=== PATIENT | female | born 1995 | race Asian ===

== ENCOUNTER 2022-05-31 13:38 | Emergency (ER) | payer OTHER ==
[2022-05-31] MEDS ORDERED: ASPIRIN 325 MG TABLET PO STA (14:25)
--- NOTE | 2022-05-31 14:29 | ED Physician Documentation ---
History of Present Illness - Stated complaint Stated Complaint: BACK PAIN - Chief complaint Chief Complaint: Neuro - Additonal information Additional information: 27-year-old female presents emergency department for evaluation of headache, n amy pain as well as intermittent dizziness and diplopia. 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 Patient moved to [facility] about 3 months ago. She did have a CT and MRI completed at an outlying hospital 3 days ago. The report which the patient's have emailed to me shows that the left vertebral artery is nearly occluded at its origin with poor flow within the left V4 segment. Based on these imaging results the patient was referred urgently to [facility] neurology but has been unable to contact them. Today she has reported a worsening headache though this feels different than her typical migraines. She has pain in her posterior neck that radiates to both arms. There is no weakness. No fevers. Patient last had vertigo about a week ago. She describes a sensation of the room spinning as well as double vision that lasts about 15 minutes. She has not had an episode since. No focal deficits, slurred speech or facial droop. Meds: 81 mg aspirin daily, topiramate Review of Systems Constitutional: denies: Fever, Chills Eyes: reports: Other (Diplopia) Nose: reports: Rhinorrhea / runny nose Throat: reports: Reviewed and negative Cardiac: reports: Reviewed and negative Respiratory: reports: Reviewed and negative : reports: Reviewed and negative Skin: reports: Reviewed and negative Musculoskeletal: reports: Neck pain Neurologic: reports: Headache. denies: Generalized weakness, Focal weakness, Numbness PD PAST MEDICAL HISTORY - Past Medical History Past Medical History: Yes Cardiovascular: None Respiratory: None Neuro: CVA, Migraines Endocrine/Autoimmune: None GI: None PIPE SMOKING MACHINE OPERATOR: None : None Psych: None Musculoskeletal: None Derm: None - Past Surgical History Past Surgical History: No - Present Medications Home Medications: Ambulatory Orders Medication Instructions Recorded Confirmed Aspirin EC [Ecotrin] 81 mg PO DAILY 05/31/22 05/31/22 Topiramate [Topamax] 25 mg PO BID 05/31/22 05/31/22 - Allergies Allergies/Adverse Reactions: Allergies Allergy/AdvReac Type Severity Reaction Status Date / Time No Known Drug Allergies Allergy Verified 05/31/22 14:03 - Social History Does the pt smoke?: No Smoking Status: Never smoker Does the pt drink ETOH?: No Does the pt have substance abuse?: No - Immunizations Immunizations are current?: Yes - POLST Patient has POLST: No PD ED PE NORMAL - General General: Alert and oriented X 3, No acute distress, Well developed/nourished - HEENT HEENT: Atraumatic, PERRL, EOMI, Moist mucous membranes, Pharynx benign - Neck Neck: Supple, no meningeal sign, No adenopathy - Cardiac Cardiac: RRR, No murmur - Respiratory Respiratory: No respiratory distress, Clear bilaterally - Abdomen Abdomen: Normal bowel sounds, Soft, Non tender - Derm Derm: Normal color, Warm and dry, No rash - Neuro Neuro: Alert and oriented X 3, electrical troubleshooter 2-12 intact, No motor deficit, No sensory deficit, Normal speech, Other (EOMI. Normal finger-nose. Normal gait normal tandem gait, normal heel avilez. Normal rapid alternating movements) Eye Opening: Spontaneous Motor: Obeys Commands Verbal: Oriented GCS Score: 15 - Psych Psych: Normal mood Results - Vitals Vitals: Vital Signs - 24 hr 05/31/22 05/31/22 05/31/22 13:56 14:32 15:29 Temperature 36.2 C L Heart Rate 66 78 77 Respiratory 16 17 17 Rate Blood Pressure 130/73 151/70 H 104/56 L O2 Saturation 100 100 100 05/31/22 05/31/22 05/31/22 15:30 16:30 17:00 Temperature Heart Rate 71 65 65 Respiratory 18 18 18 Rate Blood Pressure 109/63 134/116 H 107/60 O2 Saturation 100 100 100 05/31/22 05/31/22 05/31/22 17:30 18:00 18:30 Temperature Heart Rate 63 65 70 Respiratory 16 16 16 Rate Blood Pressure 110/60 106/61 106/62 O2 Saturation 100 100 99 05/31/22 05/31/22 05/31/22 19:00 19:30 20:00 Temperature Heart Rate 63 63 74 Respiratory 16 16 21 Rate Blood Pressure 107/67 136/71 H 106/72 O2 Saturation 99 100 100 05/31/22 20:40 Temperature 36.8 C Heart Rate 66 Respiratory 16 Rate Blood Pressure 105/71 O2 Saturation 105 H Oxygen O2 Source Room air - Labs Labs: Laboratory Tests 05/31/22 05/31/22 05/31/22 14:18 14:18 14:18 WBC 6.3 RBC 4.58 Hgb 13.0 Hct 40.1 MCV 87.6 MCH 28.4 MCHC 32.4 RDW 13.0 Plt Count 280 MPV 10.7 Neut # (Auto) 2.9 Lymph # (Auto) 2.5 Miller # (Auto) 0.6 Eos # (Auto) 0.2 Baso # (Auto) 0.1 Absolute Nucleated RBC 0.00 Nucleated RBC % 0.0 PT 12.7 H INR 1.1 Sodium 139 Potassium 3.3 L Chloride 107 Carbon Dioxide 23 Anion Gap 9.0 BUN 14 Creatinine 0.7 Estimated GFR (MDRD) 99 Glucose 83 Calcium 9.5 Total Bilirubin 0.7 AST 17 ALT 12 Alkaline Phosphatase 53 Total Protein 7.4 Albumin 4.5 Globulin 2.9 Albumin/Globulin Ratio 1.6 Lipase 37 Serum HCG, Qual 05/31/22 14:18 WBC RBC Hgb Hct MCV MCH MCHC RDW Plt Count MPV Neut # (Auto) Lymph # (Auto) Miller # (Auto) Eos # (Auto) Baso # (Auto) Absolute Nucleated RBC Nucleated RBC % PT INR Sodium Potassium Chloride Carbon Dioxide Anion Gap BUN Creatinine Estimated GFR (MDRD) Glucose Calcium Total Bilirubin AST ALT Alkaline Phosphatase Total Protein Albumin Globulin Albumin/Globulin Ratio Lipase Serum HCG, Qual NEGATIVE - Rads (name of study) CTA neck Radiology: Final report received (Dominant right vertebral artery with a minuscule left vertebral artery along its entire course which becomes atretic at the V4 segment. No acute dissection identified. No acute change compared to the CT 05/28/2022) CTA head Radiology: Final report received (Dominant right vertebral artery as discussed in the CT angio of the neck. Otherwise normal CTA of the head) PD MEDICAL DECISION MAKING - ED course Complexity details: reviewed results, re-evaluated patient, considered differential, d/w patient, d/w family ED course: 27-year-old female presents to the emergency department for evaluation of headache and neck pain that began today. She does have a history of migraines but states this headache is different. She also reportedly had a vertebral artery dissection in November 2021 in [place]. In addition she was diagnosed as having an ischemic stroke of the left cerebellar vermis. Subsequently in follow-up and repeat CT imaging [address] report reads that the left vertebral artery is occluded. In addition the MRI completed 3 days ago shows that the patient likely has a Chiari malformation. There was no discussion of a cerebellar infarction. Patient was able to email me the PDF results of these images as well as the discharge summary from the hospital. On presentation today she is alert and well-appearing. No focal neuro or cerebellar deficits. In fact her exam is entirely normal. With an unclear history of possible vertebral artery dissection versus occlusion I did perform CT angio of the head and neck. Please see the dictated results. However in discussion with the radiologist he feels that the patient has a highly dominant right vertebral artery and a very small left vertebral artery. This may be her normal variant. He is not convinced that there is vertebral artery occlusion. With the unclear history I did consult with [facility] neurologist Dr. Duran we discussed the case at length. He he was able to review our imaging. He agrees that the patient does not need any further emergent imaging or transfer. He is suspicious that the Chiari malformation may actually be the cause of her headaches. He is unclear why the MRI on the did not show findings of a cerebellar infarct though the documentation from the [facility] does indicate this. At this stage the patient is stable for discharge home. Despite no treatment here in the emergency department she is now free of headache and neck pain. She will continue to obtain follow-up for her headaches and dizziness through [facility] neurology. A referral is pending. She is advised to continue the daily aspirin. She is advised to begin a headache diary as well as a symptom diary for any vertigo or diplopia. Departure - Departure Disposition: 01 Home, Self Care Clinical Impression: History of stroke Headache Qualifiers: Headache type: unspecified Headache chronicity pattern: unspecified pattern Intractability: not intractable Qualified Code(s): R51.9 - Headache, unspecified Comments: Alfonso, You came to the ER today because you had a headache and neck pain. These have resolved without any treatment. However you discussed with us that in November you were treated at a hospital in [place] for a vertebral artery dissection. The reports from the hospital indicate that you may have had a small Cerebellar stroke at that time. However you were advised to follow-up and have repeat CT and MRI imaging. The CT scan completed on 28 May as well as the one completed today show a very small left vertebral artery in comparison to the right sided vertebral artery which is much larger. The radiologist today does not feel that you have an occlusion of the artery. It may simply be too small to see good blood flow through. The MRI completed on the suggests a condition called Chiari malformation. This is where a portion of the brain called the cerebellar tonsilsCan extend down into a portion of the spinal column. For most people this is an asymptomatic and incidental finding. It is not clear if you do have a Chiari malformation however if you do it is not likely to cause you significant problems. It is important that you discuss this possibility with the neurologist. Please continue to follow-up with neurology referral. You may continue your daily aspirin. Continue to avoid any hormones or estrogens. Please begin keeping a headache journal. Document when you get the headaches, the time of the day, any recent foods, and any other associated symptoms such as dizziness or double vision. If at any point you develop sudden slurred speech, have an unsteady gait uncontrolled nausea vomiting or weakness in your arms or legs and please return immediately to the ER for second evaluation Discharge Date/Time: 05/31/22 20:44
[2022-05-31 14:33] LABS: BASOPHILS # (AUTO) 0.1 10^3/uL (0.0-0.1); EOSINOPHILS # (AUTO) 0.2 10^3/uL (0.0-0.7); EOSINOPHILS % (AUTO) 2.6 %; HCT - HEMATOCRIT 40.1 % (37.0-47.0); LYMPHOCYTES # (AUTO) 2.5 10^3/uL (1.5-3.5); LYMPHOCYTES % (AUTO) 40.5 %; MEAN CORPUSCULAR HEMOGLOBIN 28.4 pg (27.0-31.0); MEAN CORPUSCULAR HGB CONC 32.4 g/dL (32.0-36.0); MEAN CORPUSCULAR VOLUME 87.6 fL (81.0-99.0); MEAN PLATELET VOLUME 10.7 fL (7.9-10.8); MONOCYTES # (AUTO) 0.6 10^3/uL (0.0-1.0); MONOCYTES % (AUTO) 9.3 %; NEUTROPHILS # (AUTO) 2.9 10^3/uL (1.5-6.6); NEUTROPHILS % (AUTO) 46.4 %; PLT - PLATELET COUNT 280 10^3/uL (130-450); RED BLOOD COUNT 4.58 10^6/uL (4.20-5.40); WHITE BLOOD COUNT 6.3 x10^3/uL (4.8-10.8)
[2022-05-31 14:52] LABS: INR 1.1 (0.8-1.2); PT - PROTHROMBIN TIME 12.7 secs (9.9-12.6)
[2022-05-31 14:55] LABS: ALBUMIN 4.5 g/dL (3.2-5.5); ALBUMIN/GLOBULIN RATIO 1.6 (1.0-2.2); BILIRUBIN,TOTAL 0.7 mg/dL (0.2-1.0); CALCIUM 9.5 mg/dL (8.5-10.3); CREATININE 0.7 mg/dL (0.4-1.0); POTASSIUM 3.3 mmol/L (3.5-5.0); TOTAL PROTEIN 7.4 g/dL (6.7-8.2)
[2022-05-31 16:02] LABS: HCG,QUALITATIVE BLOOD NEGATIVE
--- NOTE | 2022-05-31 16:44 | CT Report ---
PROCEDURE: ANGIO HEAD W/WO INDICATIONS: History of arterial occlusion and dissection CONTRAST: IV CONTRAST: Optiray 320 ml: 80 PO CONTRAST: *NO PO CONTRAST TECHNIQUE: Precontrast 4.5 mm thick angled axial sections acquired from the foramen magnum to the vertex. Afte r the administration of intravenous contrast, 1 mm thick sections acquired through the [place] is. Postcontrast 4.5 mm thick sections then re-acquired from the foramen magnum to the vertex. 3-di mensional wunkhgh-obeoxixrk-reolvnwfzb (MIP) and/or volume rendering reformats were acquired of the c entral intracranial vasculature. For radiation dose reduction, the following was used: automated ex posure control, adjustment of mA and/or kV according to patient size. COMPARISON: CT angiogram dated 05/28/2022. FINDINGS: Image quality: Excellent. Anterior circulation: Intracranial internal carotid arteries are normal in size and flow. The flow within the paired anterior cerebral arteries is normal and symmetric. The flow within the middle cer ebral arteries is normal and symmetric. The anterior communicating artery is seen. No aneurysms are seen. Posterior circulation: The right vertebral artery is dominant. The left vertebral artery is miniscul e along its entire course and does not reach the basilar artery. The basilar artery is patent. Flow w ithin the posterior cerebral arteries is normal and symmetric. No aneurysms are seen. CSF spaces: Ventricles are normal in size and shape. Basal cisterns are patent. No extra-axial flu id collections. Brain: No midline shift. No intracranial bleeds or masses. Graff-white matter interface appears int act. Skull and face: Calvarium and facial bones appear intact, without suspicious lesions. Sinuses: Visualized sinuses and mastoids are clear. IMPRESSION: 1. Dominant right vertebral artery with a miniscule left vertebral artery along its entire course whi ch becomes atretic in the V4 segment. No acute dissection is identified. There is no interval change compared to the prior CT performed on 05/28/2022 at [facility]. 2. Otherwise normal CTA of the head. Reviewed by: Carlos Dsouza on 05/31/2022 4:42 PM PDT Approved by: Carlos Dsouza on 05/31/2022 4:42 PM PDT Station ID: [id number]
--- NOTE | 2022-05-31 16:46 | CT Report ---
PROCEDURE: ANGIO NECK W INDICATIONS: History of arterial occlusion and dissection CONTRAST: IV CONTRAST: Optiray 320 ml: 80 PO CONTRAST: *NO PO CONTRAST TECHNIQUE: After the administration of intravenous contrast, 1.5 mm axial sections acquired from the aortic arch to the [place] of [place]. Coronal 3-D maximum intensity projection (MIP) and/or volume rendering ref ormats were then performed. For radiation dose reduction, the following was used: automated exposur e control, adjustment of mA and/or kV according to patient size. COMPARISON: CT angiogram of the neck at [facility] dated 05/28/2022. FINDINGS: Image quality: Excellent. Carotid system: The great vessels demonstrate a conventional anatomy as they arise from the aortic a rch. The origins of the common carotid arteries appear patent. The common carotid arteries demonstr ate normal calibers and courses. The bifurcation regions appear normal bilaterally. The internal ca rotid arteries demonstrate normal caliber and course. Posterior circulation: The right vertebral artery is dominant. The left vertebral artery is miniscule along its entire course and becomes atretic in the V4 segment. The basilar artery is patent. No aneu rysm or dissection is identified. CSF spaces: Ventricles are normal in size and shape. Basal cisterns are patent. No extra-axial flu id collections. Brain: No midline shift. No intracranial bleeds or masses. Graff-white matter interface appears int act. Skull and face: Calvarium and facial bones appear intact, without suspicious lesions. Sinuses: Visualized sinuses and mastoids are clear. IMPRESSION: 1. Dominant right vertebral artery with a miniscule left vertebral artery along its entire course whi ch becomes atretic in the V4 segment. No acute dissection is identified. There is no interval change compared to the prior CT performed on 05/28/2022 at [facility]. 2. Otherwise normal CTA of the neck. Reviewed by: Carlos Dsouza on 05/31/2022 4:45 PM PDT Approved by: Carlos Dsouza on 05/31/2022 4:45 PM PDT Station ID: [id number]
[2022-05-31 20:46] VITALS: BP 105/71
== END 2022-05-31 20:44 | disposition home or self-care (01) ==
LOC: EDSEX → ED 13:38
DX: R53.1 Weakness (principal); Z86.73 Personal history of transient ischemic attack (TIA), and cerebral infarction without residual deficits
CPT/HCPCS: 36415; 70496; 70498; 80053; 83690; 84703; 85025; 85610; 99284; A9270; Q9967